=== PATIENT | female | born 1945 | race Caucasian/White ===

== ENCOUNTER 2018-01-13 17:40 | Emergency (ER) | payer MEDICARE, OTHER ==
[2018-01-13] MEDS ORDERED: CHLORHEXIDINE GLUCONATE 15 ML CUP MUCOUS MEM STA (17:45)
[2018-01-13] MEDS ORDERED: SUCCINYLCHOLINE CHLORIDE VIAL 200 MG/10 ML VIAL IV STA (17:49)
[2018-01-13] MEDS ORDERED: MIDAZOLAM 1 MG/ML 5 ML VIAL IV STA (17:49)
[2018-01-13] MEDS ORDERED: SODIUM CHLORIDE 0.9% 1,000 ML IV STA (17:53)
[2018-01-13] MEDS ORDERED: PROPOFOL 1,000 MG in EMPTY BAG 1 BAG IV ONE (17:54)
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
[2018-01-13 18:22] LABS: INR 1.1 (<1.2); Prothrombin Time 10.8 sec (9.0-12.0)
[2018-01-13] MEDS ORDERED: MANNITOL 25% 12.5 GM/50 ML VIAL IV STA (18:22)
[2018-01-13 18:26] LABS: Partial Thromboplastin Time 21.3 sec (22.0-30.0)
[2018-01-13 18:28] LABS: ALT 50 U/L (9-52); Albumin 3.6 g/dL (3.5-5.0); Alcohol <10 mg/dL; Alkaline Phosphatase 169 U/L (38-126); Amylase 61 U/L (30-110); Anion Gap 7 mmol/L; Calcium 8.8 mg/dL (8.4-10.2); Carbon Dioxide 24 mmol/L (22-30); Chloride 107 mmol/L (98-107); Glucose 117 mg/dL (74-99); Lipase 157 U/L (23-300); Sodium 138 mmol/L (137-145); Total Bilirubin 0.6 mg/dL (0.2-1.3); Total Protein 6.4 g/dL (6.3-8.2)
[2018-01-13 18:29] LABS: Creatine Kinase 47 U/L (30-135)
[2018-01-13 18:30] LABS: AST 76 U/L (14-36); Blood Urea Nitrogen 33 mg/dL (7-17); Potassium 5.2 mmol/L (3.5-5.1)
[2018-01-13 18:38] LABS: Amorphous Sediment,Urine Occasional /hpf; Appearance,Urine Clear (Clear); Bacteria,Urine Rare /hpf; Bilirubin,Urine Negative (Negative); Blood,Urine Trace (Negative); Color,Urine Yellow; Glucose,Urine (UA) Negative (Negative); Hyaline Casts,Urine 43 /lpf (0-2); Ketones,Urine Negative (Negative); Leukocyte Esterase,Urine Trace (Negative); Mucus,Urine Rare /hpf; Nitrite,Urine Negative (Negative); PH, Urine 5.5 (5.0-8.0); Protein,Urine 1+ (Negative); RBC,Urine 3 /hpf (0-5); Squamous Epithelial Cell,Urine 1 /hpf (0-4); Urobilinogen,Urine <2.0 mg/dL (<2.0); WBC,Urine 3 /hpf (0-5)
[2018-01-13 18:42] LABS: Creatine Kinase MB 0.7 ng/mL (0.0-2.4)
[2018-01-13 18:43] LABS: Troponin I <0.012 ng/mL (0.000-0.034)
[2018-01-13 18:44] LABS: HCT 34.3 % (34.0-46.0); HGB 11.2 gm/dL (11.4-16.0); MCH 31.4 pg (25.0-35.0); MCHC 32.8 g/dL (31.0-37.0); MCV 95.8 fL (80.0-100.0); Platelet Count 156 k/uL (150-450); RBC 3.58 m/uL (3.80-5.40); RDW 13.3 % (11.5-15.5); WBC 12.6 k/uL (3.8-10.6)
[2018-01-13 18:44] LABS: Amphetamine Screen,Urine Not Detected (NotDetected); Barbiturate Screen,Urine Not Detected (NotDetected); Benzodiazepines Screen,Urine Detected (NotDetected); Cocaine Screen,Urine Not Detected (NotDetected); Methadone Screen, Urine Not Detected (NotDetected); Opiate Screen,Urine Not Detected (NotDetected); Oxycodone Screen, Urine Not Detected (NotDetected); Phencyclidine Screen,Urine Not Detected (NotDetected); Tricyclic Antidepressant,Urine Not Detected (NotDetected); Urn Cannabinoid Scrn Not Detected (NotDetected)
--- NOTE | 2018-01-13 18:47 | CT ---
EXAMINATION TYPE: CT brain chelsea kruse DATE OF EXAM: 01/13/2018 COMPARISON: HISTORY: Unresponsive CT DLP: 1089.3 mGycm Automated exposure control for dose reduction was used. TECHNIQUE: CT scan of the head and cervical spine are performed without contrast. FINDINGS: There is extensive acute subarachnoid hemorrhage with high attenuation in the sylvian fis sures, third ventricle, circummesencephalic cistern, supratentorial region. There is high attenuation also in the interhemispheric fissure anteriorly and extending inferiorly through the foramen magnum on the anterior aspect of the brainstem. There is 3 x 1.5 cm oval-shaped area of high attenuation in the region of the right middle cerebral artery. The space between the temporal lobes and the rafael is preserved. The calvarium is intact. There is mild straightening of the cervical vertebra. Posterior elements are intact. There is multile franco facet arthropathy. There is narrowing of the disc spaces from C4 to C7 with spurring of the endpl ates. There is no compression fracture. IMPRESSION: There is extensive subarachnoid hemorrhage. There is localized acute hemorrhage on the right side at the right middle cerebral artery that could relate to ruptured aneurysm. I do not see definite uncal herniation. This exam was discussed with ER physician at 6:40 PM. Spondylotic changes in the cervical spine. No fracture.
[2018-01-13 18:52] LABS: Lymphocytes # (M) 9.83 k/uL (1.0-4.8); Monocytes # (M) 0.13 k/uL (0-1.0); Neutrophils # (M) 2.65 k/uL (1.3-7.7); Neutrophils % (M) 21 %; Nucleated Red Blood Cells 0 /100 WBC (0-0); Poikilocytosis (M) Present; Total Cells Counted 100
[2018-01-13] MEDS ORDERED: SODIUM CHLORIDE 0.9% 1,000 ML IV SCH (19:00)
[2018-01-13 19:08] LABS: ABG Base Excess -2.3 mmol/L; ABG HCO3 23 mmol/L (21-25); ABG PCO2 39 mmHg (35-45); ABG PH 7.37 (7.35-7.45); ABG PO2 362 mmHg (83-108); ABG TCO2 24 mmol/L (19-24)
[2018-01-13 19:44] VITALS: TEMP 97.3
[2018-01-13 19:52] VITALS: RESP 12
[2018-01-13 19:56] VITALS: PULSE 80
[2018-01-13 19:59] VITALS: BP 99/55
== END 2018-01-13 19:25 | disposition other institution (70) ==
LOC: EC 17:40
DX: S80.212A Abrasion, left knee, initial encounter (principal); I60.9 Nontraumatic subarachnoid hemorrhage, unspecified; R40.2432 Glasgow coma scale score 3-8, at arrival to emergency department; V43.53XA Car driver injured in collision with pick-up truck in traffic accident, initial encounter; Y92.410 Unspecified street and highway as the place of occurrence of the external cause
CPT/HCPCS: 99291; 31500; 96360; 36415; 36600; 94002; 93005; 86900; 86901; 80053; 82150; 82550; 82553; 82805; 83605; 83690; 84484; 85025; 85610; 85730; 86850; 81001; 80306; 80320; 72170; 71045; 72125; 70450; J0330; J2250; J2704